=== PATIENT | male | born 1935 | race Two or more races ===

== ENCOUNTER 2019-09-26 19:10 | Emergency (ER) | payer OTHER, MEDICAID ==
[~2019-09-26] VITALS: Ht 172.7 cm; Wt 87.5 kg
--- NOTE | 2019-09-26 19:17 | NUR ---
RT NOTE: EMT TRANSFERRED TRACH PT TO THE ER. PLACED PT ON MECH VENT ON PREVIOUS MECH SETTINGS GIVEN BY THE EMT. PORTEX 8 TRACH IS PATENT AND SECURED. STORM CHASER DONE. SX SMALL AMOUNT OF THICK YELLOW SECRETIONS. VENT PLUGGED INTO RED OUTLET. ALARMS ON AND AUDIBLE. AMBU BAG @ BEDSIDE. NO RESP DISTRESS AT THIS TIME. ABG TO BE DONE IN [address] MOYA. WILL CONT TO MONITOR PT. Addendum: 09/27/19 at 0402 by EBONY MYRICK RT Amended: Links added.
--- NOTE | 2019-09-26 19:25 | NUR ---
SHELLIE "FROM [facility] C/O FEVER AND ELEVATED HR" VSS. RESPONSIVE TO PAIN/TOUCH.
[2019-09-26] MEDS ORDERED: ACETAMINOPHEN 650 MG/SUPP.RECT RC ONE ×2 (19:30→19:42)
[2019-09-26 19:40] LABS: BASOPHILS % (AUTO) 0.2 % (0.0-2.0); EOSINOPHILS % (AUTO) 5.1 % (0.0-6.0); HEMATOCRIT 28 % (39-51); HEMOGLOBIN 8.6 g/dL (13.5-17.5); LYMPHOCYTES # (AUTO) 0.8 /CMM (0.8-4.8); LYMPHOCYTES % (AUTO) 4.6 % (20.0-44.0); MEAN CORPUSCULAR HGB CONC 31 g/dl (31.0-36.0); MEAN CORPUSCULAR VOLUME 94 fL (80-96); MONOCYTES # (AUTO) 0.3 /CMM (0.1-1.30); MONOCYTES % (AUTO) 1.5 % (2.0-12.0); NEUTROPHILS # (AUTO) 14.6 /CMM (1.8-8.9); NEUTROPHILS % (AUTO) 88.6 % (43.0-81.0); PLATELET COUNT (AUTO) 266 /CMM (150-450); RED BLOOD CELL COUNT(AUTO) 2.97 MIL/uL (4.5-6.0); WHITE BLOOD COUNT (AUTO) 16.5 K/uL (4.3-11.0)
[2019-09-26] MEDS ORDERED: PIPERACILLIN /TAZOBACTAM 2.25 G in IV D5W 50 ML IV ONE (20:00)
[2019-09-26] MEDS ORDERED: VANCOMYCIN 1 GM in IV D5W 250 ML IV ONE (20:00)
[2019-09-26] MEDS ORDERED: PIPERACILLIN /TAZOBACTAM 3.375 G VIAL IV ONE (20:01)
[2019-09-26] MEDS ORDERED: VANCOMYCIN 1 GM VIAL ONE (20:01)
[2019-09-26 20:05] LABS: APPEARANCE,URINE Cloudy (CLEAR); BILIRUBIN,URINE Negative (NEGATIVE); BLOOD, URINE Large Ery/uL (NEGATIVE); COLOR,URINE Yellow (YELLOW); KETONES,URINE Negative (NEGATIVE); LEUKOCYTE ESTERASE ,URINE Large (NEGATIVE); NITRITE, URINE Negative (NEGATIVE); PROTEIN,URINE >=300 mg/dl (NEGATIVE); UGLUCOSE Negative (NEGATIVE); UROBILINOGEN,URINE 0.2 EU/dL (0.2)
[2019-09-26 20:14] LABS: ALBUMIN 2.3 g/dL (3.4-5.0); BILIRUBIN,DIRECT 0.2 mg/dL (0.0-0.2); BILIRUBIN,TOTAL 0.4 mg/dL (0.2-1.0); CALCIUM, SERUM 8.9 mg/dL (8.5-10.1); CREATININE 1.1 mg/dL (0.6-1.3); POTASSIUM 4.1 mmol/L (3.5-5.1); TOTAL PROTEIN, SERUM 7.4 g/dL (6.4-8.2)
[2019-09-26 20:15] LABS: BACTERIA,URINE Many /HPF (None Seen); RBC,URINE 21-50 /HPF (0-2); SQUAMOUS EPITHELIAL CELL,UR Few /HPF (None Seen); URINE AMORPHOUS URATE Moderate /HPF (None Seen); WBC,URINE TOO NUMEROUS TO COUN /HPF (0-3)
[2019-09-26 20:17] LABS: ABG BASE EXCESS 4.6 mmol/L; ABG PCO2 47.6 mmHg (35.0-45.0); ABG PH 7.414 (7.350-7.450); ABG PO2 73.8 mmHg (75.0-100.0); AaDO2 156.7 mmHg; COHb 0.8 % (0.5-1.5); MetHb 0.5 % (0.0-1.5); O2Hb 93.8 % (94.0-97.0); PEEP,BG 5 cm H2O; SITE, ABG Right Radial; VENT MODE, BG AC 20; VT, ABG 500 mL
[2019-09-26] MEDS ORDERED: IV NS 0.9% 500 ML BAG IV ONE (21:00)
--- NOTE | 2019-09-26 21:34 | NUR ---
PER ADMITTING PT WILL BE TRANSFERRED AWAITING MD CALL
--- NOTE | 2019-09-26 23:45 | NUR ---
HYACINTH, CASE ASSISTANT. ACCEPTED AT [facility] [id number]. [phone] EXT [id number] CALLAWAY. SATNAM C/B FOR CCT INFO.
--- NOTE | 2019-09-27 00:03 | NUR ---
[facility] ETA 0330.
--- NOTE | 2019-09-27 00:04 | NUR ---
report given to Nela WOLFF for [facility].
[2019-09-27 02:18] VITALS: BP 144/66
--- NOTE | 2019-09-27 02:53 | NUR ---
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
== END 2019-09-27 03:06 | disposition short-term general hospital (02) ==
LOC: ER 19:10
DX: J18.9 Pneumonia, unspecified organism (principal); N30.00 Acute cystitis without hematuria; D64.9 Anemia, unspecified; I13.0 Hypertensive heart and chronic kidney disease with heart failure and stage 1 through stage 4 chronic kidney disease, or unspecified chronic kidney disease; I50.9 Heart failure, unspecified; N18.9 Chronic kidney disease, unspecified; E11.22 Type 2 diabetes mellitus with diabetic chronic kidney disease; R94.5 Abnormal results of liver function studies; J44.9 Chronic obstructive pulmonary disease, unspecified; K21.9 Gastro-esophageal reflux disease without esophagitis; I10 Essential (primary) hypertension; I48.91 Unspecified atrial fibrillation; I25.2 Old myocardial infarction; F32.9 Major depressive disorder, single episode, unspecified; R00.0 Tachycardia, unspecified; I44.0 Atrioventricular block, first degree; I45.10 Unspecified right bundle-branch block; Z93.0 Tracheostomy status; Z93.1 Gastrostomy status
CPT/HCPCS: 36415; 36600 ×2; 51702; 71045; 80048; 80076; 81001; 82803; 83605; 83735; 84145; 84484; 85025; 85730; 87040 ×2; 87077 ×3; 87081; 87086; 87186 ×2; 93005; 96365; 96368; 99285; J2543 ×2; J3370; J7040; J7060; 81000-TC